=== PATIENT | male | born 1985 | race Hispanic/Latino ===

== ENCOUNTER 2018-04-12 12:36 | Emergency (ER) | payer MEDICAID ==
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
[2018-04-12 15:06] VITALS: BP 159/83; PULSE 86; RESP 19; TEMP 98; O2SAT 99
== END 2018-04-12 15:09 | disposition home or self-care (01) ==
LOC: MERGE 12:36 → ED 12:36
DX: S82.61XA Displaced fracture of lateral malleolus of right fibula, initial encounter for closed fracture (principal); Y04.0XXA Assault by unarmed brawl or fight, initial encounter; E11.9 Type 2 diabetes mellitus without complications; E66.01 Morbid (severe) obesity due to excess calories; F17.210 Nicotine dependence, cigarettes, uncomplicated
CPT/HCPCS: 29515; 73590; 73610; 96372; 99285; J1885